=== PATIENT | female | born 1975 | race Caucasian/White ===

== ENCOUNTER 2022-05-02 01:00 | Emergency (ER) | payer BC ==
[2022-05-02] MEDS: Ketorolac 30 MG/ML SDV IM ONE (01:19)
[2022-05-02] MEDS: Cyclobenzaprine 10 MG Tab PO ONE (01:23)
[2022-05-02] MEDS: Cyclobenzaprine 10 MG Tab ONE (01:29)
[2022-05-02] MEDS: Ketorolac 30 MG/ML SDV ONE (01:29)
[2022-05-02 01:32] VITALS: BP 155/104; PULSE 81
== END 2022-05-02 02:00 | disposition home or self-care (01) ==
LOC: KA.ED 01:00
DX: M46.1 Sacroiliitis, not elsewhere classified (principal); M54.42 Lumbago with sciatica, left side; Z79.899 Other long term (current) drug therapy
CPT/HCPCS: 96372; 99283; A9270-GY; J1885